=== PATIENT | female | born 1955 | race Two or more races ===

== ENCOUNTER 2016-09-30 14:47 | Emergency (ER) | payer OTHER, MEDICAID ==
[~2016-09-30] VITALS: Ht 167.6 cm; Wt 72.6 kg
[2016-09-30 14:47] VITALS: BP 0/0
[2016-09-30] MEDS ORDERED: EPINEPHrine HCL 1 MG/10 ML SYRG IV ONE (19:29)
[2016-09-30] MEDS ORDERED: SODIUM BICARBONATE 8.4% INJ 50ML SYRINGE IV ONE (19:29)
== END 2016-09-30 18:54 | disposition expired ==
LOC: EDBD 14:47 → ER 14:52
DX: I46.9 Cardiac arrest, cause unspecified (principal); E11.9 Type 2 diabetes mellitus without complications
CPT/HCPCS: 31500; 92950; 99285; J0171